=== PATIENT | male | born 1940 | race Caucasian/White ===

== ENCOUNTER 2016-09-14 03:12 | Emergency (ER) | payer OTHER, BC ==
[2016-09-14] MEDS ORDERED: ONDANSETRON 4 MG/2 ML VIAL IVP ONE (03:19)
[2016-09-14] MEDS ORDERED: NS 1,000 ML IV ONE ×2 (03:19→05:05)
--- NOTE | 2016-09-14 03:21 | EDPHY ---
H & P Time Seen by Provider: 09/14/16 03:16 HPI/ROS: CHIEF COMPLAINT: Nausea vomiting HISTORY OF PRESENT ILLNESS: Patient is a 68-year-old man who comes to the emergency department after accidentally taking 1 of his 's namenda pills and 1 of her Aricept pills at around 9:00 p.m. last night. He states that he he realized his mistake immediately after taking the pills and began feeling nauseous. Around 11:00 p.m. he began vomiting. He has vomited several times. He denies abdominal pain. He denies chest pain. He denies shortness of breath. REVIEW OF SYSTEMS: Constitutional: denies: chills, fever, recent illness, recent injury EENTM: denies: blurred vision, double vision, nose congestion Respiratory: denies: cough, shortness of breath Cardiac: denies: chest pain, irregular heart rate, lightheadedness, palpitations Gastrointestinal/Abdominal: See HPI Genitourinary: denies: dysuria, frequency, hematuria, pain Musculoskeletal: denies: joint pain, muscle pain Skin: denies: lesions, rash, jaundice, bruising Neurological: denies: headache, numbness, paresthesia, tingling, dizziness, weakness Hematologic/Lymphatic: denies: blood clots, easy bleeding, easy bruising Immunologic/allergic: denies: HIV/AIDS, transplant EXAM: GENERAL: Well-appearing, well-nourished and in no acute distress. HEAD: Atraumatic, normocephalic. EYES: Pupils equal round and reactive to light, extraocular movements intact, sclera anicteric, conjunctiva are normal. ENT: TMs normal, nares patent, oropharynx clear without exudates. Moist mucous membranes. NECK: Normal range of motion, supple without lymphadenopathy or JVD. LUNGS: Breath sounds clear to auscultation bilaterally and equal. No wheezes rales or rhonchi. HEART: Regular rate and rhythm without murmurs, rubs or gallops. ABDOMEN: Soft, nontender, normoactive bowel sounds. No guarding, no rebound. No masses appreciated. BACK: No CVA tenderness, no spinal tenderness, step-offs or deformities EXTREMITIES: Normal range of motion, no pitting or edema. No clubbing or cyanosis. NEUROLOGICAL: Cranial nerves II through XII grossly intact. Normal speech, normal gait. 5/5 strength, normal movement in all extremities, normal sensation PSYCH: Normal mood, normal affect. SKIN: Warm, dry, normal turgor, no visible rashes or lesions. Source: Patient Exam Limitations: No limitations - Medical/Surgical History Hx Asthma: No Hx Chronic Respiratory Disease: No Hx Diabetes: No Hx Cardiac Disease: Yes Hx Renal Disease: No Hx Cirrhosis: No Hx Alcoholism: No - Family History Significant Family History: No pertinent family hx - Social History Smoking Status: Never smoked Alcohol Use: Sober Drug Use: None Constitutional: Initial Vital Signs Temperature (C) 36.8 C 09/14/16 03:24 Heart Rate 57 L 09/14/16 03:24 Respiratory Rate 16 09/14/16 03:24 Blood Pressure 124/84 H 09/14/16 03:24 O2 Sat (%) 94 09/14/16 03:24 O2 Delivery Mode Room Air Allergies/Adverse Reactions: No Known Allergies Allergy (Verified 09/14/16 03:19) Home Medications: Medication Instructions Recorded ALPRAZolam [Xanax (RX)] 0.25 mg PO Q7D PRN 11/05/11 Aspirin [Aspirin (OTC)] 325 mg PO DAILY 11/05/11 Atorvastatin Calcium [Lipitor 20 20 mg PO DAILY 11/05/11 mg (RX)] Metoprolol Succinate Xr [Toprol Xl 50 mg PO DAILY 11/05/11 50 mg (RX)] Mirtazapine [Remeron Soltab 30 mg 30 mg PO DAILY 11/05/11 (RX)] Naproxen Sodium [Aleve 220 mg 1 - 2 tab PO DAILY PRN 11/05/11 (OTC)] Niacin ER [Niaspan 1000 mg (RX)] 1,000 mg PO DAILY 11/05/11 Phamacy Completed 11/05/11 11/05/11 Medical Decision Making - Diagnostics EKG Interpretation: An EKG obtained and was read and documented in trace view. Please see trace view for full reading and report. Sinus rhythm, no acute ischemic changes ED Course/Re-evaluation: 5:00 a.m. the patient is feeling much better. He is not nauseous and has not vomited since arriving. His abdominal exam remains benign. He is worried that if he gets up and moves his head around he will become nauseous. We will continue to observe. 6:00 a.m. the patient is feeling much better. He has been up into the bathroom. He is currently asymptomatic and eager to go home. His son is on his way to take in his home. They declined further workup or testing at this point. Differential Diagnosis: Partial list of the Differential diagnosis considered include but were not limited to; medication effect, anxiety and although unlikely based on the history and physical exam, I also considered overdose, allergic reaction, infection. I discussed these differential diagnoses and the plan with the patient as well as the usual and expected course. The patient understands that the diagnosis is provisional and that in medicine we are not always correct and that further workup is often warranted. Usual and customary warnings were given. All of the patient's questions were answered. The patient was instructed to return to the emergency department should the symptoms at all worsen or return, otherwise to followup with the physician as we discussed. - Data Points Medications Given: Discontinued Medications Sodium Chloride (Ns) 1,000 mls @ 0 mls/hr IV ONCE ONE PRN Reason: Wide Open Stop: 09/14/16 03:20 Last Admin: 09/14/16 03:30 Dose: 1,000 mls Sodium Chloride (Ns) 1,000 mls @ 0 mls/hr IV ONCE ONE PRN Reason: Wide Open Stop: 09/14/16 05:06 Last Admin: 09/14/16 05:10 Dose: 1,000 mls Ondansetron HCl (Zofran) 4 mg IVP EDNOW ONE Stop: 09/14/16 03:20 Last Admin: 09/14/16 03:30 Dose: 4 mg Departure - Departure Disposition: Home, Routine, Self-Care Clinical Impression: Medication reaction Condition: Fair Instructions: Acute Nausea and Vomiting (ED) Referrals: Denise House PA [Primary Care Provider] - As per Instructions
--- NOTE | 2016-09-14 03:47 | CPEKG ---
Heart Rate: 57 RR Interval: 1053 P-R Interval: 196 QRSD Interval: 100 QT Interval: 476 QTC Interval: 464 P Wanda: 3 QRS Wanda: 19 T Wave Wanda: -36 EKG Severity - BORDERLINE ECG - EKG Impression: SINUS RHYTHM EKG Impression: BORDERLINE T ABNORMALITIES, INFERIOR LEADS EKG Impression: Similar to previous Electronically Signed By: Vu Bright 14-Sep-2016 03:56:21
[2016-09-14 06:48] VITALS: BP 122/76; PULSE 58; RESP 20; TEMP 98.4; O2SAT 98
== END 2016-09-14 06:48 | disposition home or self-care (01) ==
LOC: EDUNIT#
DX: R11.2 Nausea with vomiting, unspecified (principal); T43.8X5A Adverse effect of other psychotropic drugs, initial encounter; Z79.82 Long term (current) use of aspirin
CPT/HCPCS: 93005; 96361; 96374; 99284; J2405